=== PATIENT | female | born 2000 | race African-American/Black ===

== ENCOUNTER 2021-01-18 08:05 | Emergency (ER) | payer SELFPAY ==
[2021-01-18 08:17] VITALS: BP 133/75; PULSE 96; RESP 16; TEMP 36.8; O2SAT 100
--- NOTE | 2021-01-18 08:30 | ECG_ITS ---
Measurements Intervals [place] Rate: 81 P: 65 HI: 138 QRS: 67 QRSD: 73 T: 35 QT: 382 QTc: 444 Interpretive Statements SINUS RHYTHM WITH SINUS ARRHYTHMIA MINIMAL Q WAVES- INF/LAT LEADS NONSPECIFIC T-WAVE ABNORMALITY- ANTERIOR LEADS BASELINE ARTIFACT- I, II, III, AVR, AVF BORDERLINE ECG Electronically Signed On 01-18-2021 8:57:36 LOCKER ROOM CLERK by Drew Hammer D.O.
--- NOTE | 2021-01-18 08:34 | ED.CHESTPAIN ---
HPI - Chest Pain General Stated Complaint: cp/abd pain/Weakness History of Present Illness HPI narrative: This is a 20-year-old female comes in complaining of chest pain that started on Friday according to patient the pain is straight down the middle stops at the mid abdomen. Patient is having pain anytime she sleeps on her left side of her torso and her she is having trouble breathing and intense and some nausea. At times patient is stating that she is having heart palpitations just doing basic tasks or events that sitting causes her to become weak and feeling faint. Patient states that she took ibuprofen today but her when she eats Related Data Home Medications Medication Instructions Recorded Confirmed norethindrone-e.estradiol-iron 1 tablet PO DAILY 01/18/21 01/18/21 [03/29 (28)] Allergies Allergy/AdvReac Type Severity Reaction Status Date / Time ibuprofen AdvReac Nausea Verified 01/18/21 08:27 Review of Systems Review of Systems: Chest pain, nausea vomiting, shortness of breath All systems reviewed & are unremarkable except as noted in HPI and below PMFSH Comments At time as signature, I have reviewed and agree with nursing past medical, social, surgical and family history. Please see nursing chart for further information. There is no relevant family history pertinent to the presenting complaint. Exam Narrative: GENERAL:Well-appearing, well-nourished, and in no acute distress. HEAD:Normocephalic, EYES: PERRLA and EOMI. ENT: Nares clear, no rhinorrhea or epistaxis. Mucous membranes moist. CHEST: Clear to auscultation. No respiratory distress. HEART: Regular rate and rhythm ABDOMEN: Soft, nontender, nondistended, normal active bowel sounds. EXTREMITIES: Normal range of motion. No edema. SKIN: Warm, dry, no rash. NEURO: No focal deficits. Alert and oriented x3. Course Course Emergency Course: EKG chest pain sinus arrhythmia Report given to Dr. Kaiser and Renetta NAJERAfraud prevention analyst to [facility] patient signed refusal paper Vital Signs Vital signs: Vital Signs Temperature 98.2 F 01/18/21 08:17 Pulse Rate 96 01/18/21 08:17 Respiratory Rate 16 01/18/21 08:17 Blood Pressure 133/75 01/18/21 08:17 Pulse Oximetry 100 01/18/21 08:17 Temperature 98.2 F 01/18/21 08:17 Pulse Rate 96 01/18/21 08:17 Respiratory Rate 16 01/18/21 08:17 Blood Pressure 133/75 01/18/21 08:17 Pulse Oximetry 100 01/18/21 08:17 MDM - Chest Pain Differential Diagnosis Differential diagnosis: Likely fracture of rib, stable angina, unstable angina pectoris, atypical chest pain, st elevation myocardial infarction, costochondritis, chest pain and biliary colic Discharge Plan Discharge Clinical Impression: Chest pain Qualifiers: Chest pain type: unspecified Qualified Code(s): R07.9 - Chest pain, unspecified Patient Disposition: Acute Care Hospital Condition: Stable Instructions: Antibiotic Form Prescriptions: No Action norethindrone-e.estradiol-iron [03/29 (28)] 1 mg-20 mcg (21)/75 mg (7) Tablet 1 tablet PO DAILY RF: 0 Follow-up/Referrals: UNKNOWN,DOCTOR [Primary Care Provider] - Time of Disposition: 08:45
== END 2021-01-18 08:40 | disposition short-term general hospital (02) ==
PROVIDERS: Emergency Provider Nurse Practitioner Family
DX: R07.9 Chest pain, unspecified (principal)
CPT/HCPCS: 93005; 99213; G0463

== ENCOUNTER 2021-01-18 09:00 | Emergency (ER) | payer SELFPAY ==
--- NOTE | ~2021-01-18 | XR_ITS ---
EXAMINATION: XR chest 2V DATE: 01/18/2021 09:52 INDICATION: Chest pain TECHNIQUE: Frontal and lateral views of the chest are obtained COMPARISON: None available FINDINGS: The lungs are free of acute opacities. There is no pleural effusion or pneumothorax. The ca rdiomediastinal silhouette is normal. The visualized bones and soft tissues are unremarkable. IMPRESSION: 1. No acute cardiopulmonary abnormality. Reviewed, dictated and finalized at location B. ICE OBSERVER
--- NOTE | 2021-01-18 09:17 | ECG_ITS ---
Measurements Intervals [place] Rate: 94 P: 71 [place]: 129 QRS: 69 QRSD: 89 T: 4 QT: 353 QTc: 443 Interpretive Statements SINUS RHYTHM BORDERLINE ST-T WAVE ABNORMALITY- ANT/INF LEADS BASELINE ARTIFACT- II, III, AVL, AVF, V3-V6 BORDERLINE ECG Electronically Signed On 01-18-2021 9:27:56 SHAVING MACHINE OPERATOR by Drew Hammer D.O.
[2021-01-18 09:18] VITALS: BP 135/84; PULSE 106; RESP 16; TEMP 36.2; O2SAT 100
--- NOTE | 2021-01-18 09:52 | PC.NURSE ---
This RN unable to gain IV access. Had another RN attempt and was unsuccessful as well.
--- NOTE | 2021-01-18 10:06 | ED.CHESTPAIN ---
HPI - Chest Pain General Chief Complaint: Chest Pain Stated Complaint: CP, stomach pain Time Seen by Provider: 01/18/21 09:18 Source: patient and family Mode of arrival: ambulatory Limitations: no limitations History of Present Illness HPI narrative: Patient is 20 years old -[place] female presents with retrosternal chest pain and epigastric pain that started 4 days ago worse with movement, better sitting up and remaining still. Associated with nausea. Patient denies any fever, chills, vomiting, diarrhea, constipation, vaginal bleeding or discharge, urinary symptoms, radiation of pain. Patient denies smoking or drinking, using marijuana occasionally. No history of abdominal surgery. A a lot of stress lately. Related Data Home Medications Medication Instructions Recorded Confirmed norethindrone-e.estradiol-iron 1 tablet PO DAILY 01/18/21 01/18/21 [03/29 (28)] Allergies Allergy/AdvReac Type Severity Reaction Status Date / Time broccoli Allergy Unknown Verified 01/18/21 09:27 ibuprofen AdvReac Nausea Verified 01/18/21 09:27 Review of Systems Review of Systems: CONSTITUTIONAL: Denies fever, chills, or sweats. EYES: Denies visual changes, redness, or discharge. ENT: Denies rhinorrhea, congestion, sore throat, or otalgia. CARDIOVASCULAR: Denies chest pain, palpitations, or edema. RESPIRATORY: Denies cough or dyspnea. GASTROINTESTINAL: Denies abdominal pain, nausea, vomiting, or diarrhea. GENITOURINARY: Denies dysuria or hematuria. SKIN: Denies rash or itching. MUSCULOSKELETAL: Denies back pain, joint pain, or myalgia. NEUROLOGIC: Denies headache, numbness, or weakness. PSYCHIATRIC: Denies anxiety or depression. Exam Narrative: General appearance: Well-developed, well-nourished Skin: Normal color Head: Normocephalic, nontraumatic Eyes: Clear conjunctiva ENT: Oropharynx normal, ears normal, nose normal Neck: Supple, nontender Chest and respiratory: Airway patent, no respiratory distress, no accessory muscle use Heart: Regular rate/rhythm Abdomen: Soft, tender epigastric area, quiet bowel sounds, no guarding or rebound. Vascular: Normal peripheral pulses, normal capillary refill. Musculoskeletal: Normal range of motion, nontender back Neurologic: Alert and oriented ?3, TRANSPORTATION REFRIGERATION TECHNICIAN is normal as tested, no gross motor deficit Course Course Emergency Course: Stable Vital Signs Vital signs: Vital Signs Temperature 36.2 C L 01/18/21 09:18 Pulse Rate 106 H 01/18/21 09:18 Respiratory Rate 16 01/18/21 09:18 Blood Pressure 135/84 01/18/21 09:18 Pulse Oximetry 100 01/18/21 09:18 Temperature 36.2 C L 01/18/21 09:18 Pulse Rate 78 01/18/21 11:23 Respiratory Rate 18 01/18/21 11:23 Blood Pressure 135/84 01/18/21 11:23 Pulse Oximetry 99 01/18/21 11:23 MDM - Chest Pain MDM Narrative Medical decision making narrative: Patient presents with retrosternal and epigastric pain. Differential diagnosis as below. Labs, chest x-ray, EKG ordered. Work-up showed no significant findings to explain patient condition. Anxiety-like symptoms is my concern. Differential Diagnosis Differential diagnosis: Likely atypical chest pain, costochondritis, chest pain, biliary colic and other (Pancreatitis, gastritis, stress-like symptoms) Lab Data Result diagrams: 01/18/21 10:22 01/18/21 10:22 Labs: Lab Results 01/18/21 01/18/21 01/18/21 Range/Units 10:22 10:22 10:22 WBC 5.4 (4.5-10.0) K/mm3 RBC 4.44 (4.2-5.4) M/mm3 Hgb 12.1 (12.0-15.0) g/dL Hct 38.0 (37.0-47.0) % MCV 85.6 (80-100) fl MCH 27.3 (26-34) pg MCHC 31.8 L (32-36) g/dl RDW 12.4 (11.5-14.5)
[2021-01-18 10:29] LABS: Basophils Percent Auto 0.4 % (0.2-1.2); Eosinophils Absolute Auto 0.1 K/mm3 (0-0.3); Eosinophils Percent Auto 0.9 % (0-4.4); Hemoglobin 12.1 g/dL (12.0-15.0); Immature Granulocyte Absolute 0.02 K/mm3 (0.00-0.031); Immature Granulocyte Percent A 0.4 % (0-0.5); Lymphocytes Absolute Auto 1.65 K/mm3 (0.9-3.2); Lymphocytes Percent Auto 30.7 % (18.3-44.2); Mean Corpuscular HGB Conc 31.8 g/dl (32-36); Mean Corpuscular Hemoglobin 27.3 pg (26-34); Mean Corpuscular Volume 85.6 fl (80-100); Mean Platelet Volume 10.4 fl (7.4-10.4); Monocytes Absolute Auto 0.3 K/mm3 (0.1-0.6); Neutrophils Absolute Auto 3.4 K/mm3 (1.3-6.7); Neutrophils Percent Auto 62.6 % (45.5-73.1); Platelet Count Result 247 k/mm3 (150-375); Red Blood Count 4.44 M/mm3 (4.2-5.4); Red Cell Distribution Width 12.4 % (11.5-14.5); White Blood Count 5.4 K/mm3 (4.5-10.0)
[2021-01-18 10:39] LABS: Prothrombin Time 13.3 Seconds (11.1-14.7)
[2021-01-18 10:40] LABS: Partial Thromboplastin Time 32.4 SECONDS (22.3-36.8)
[2021-01-18 10:47] LABS: CRP < 0.5 mg/dL (<1.0)
[2021-01-18 11:06] LABS: Anion Gap 8 mmol/L (8-16); Blood Urea Nitrogen 10 mg/dL (7-17); Calcium 9.6 mg/dL (8.4-10.2); Carbon Dioxide 23 mmol/L (22-30); Chloride 108 mmol/L (98-107); D Dimer 0.27 ug/mL (<0.48); Estimated CRCL calculation 119 ml/min; Estimated Glomerular Filt Rate > 60; Glucose 78 mg/dL (65-110); Potassium 3.7 mmol/L (3.4-5.0); Sodium 139 mmol/L (137-145); Troponin I < 0.012 ng/mL (0.000-0.034)
[2021-01-18 11:23] VITALS: BP 135/84; PULSE 78; RESP 18; O2SAT 99
== END 2021-01-18 11:36 | disposition home or self-care (01) ==
PROVIDERS: Emergency Provider Emergency Medicine
DX: R07.89 Other chest pain (principal); R10.13 Epigastric pain
CPT/HCPCS: 36415; 71046; 80048; 84484; 85025; 85380; 85610; 85730; 86140; 93005; 99284

== ENCOUNTER 2021-12-19 08:18 | Emergency (ER) | payer SELFPAY ==
[2021-12-19 08:28] VITALS: BP 120/72; PULSE 73; RESP 16; TEMP 36.6; O2SAT 100
--- NOTE | 2021-12-19 08:28 | ED.EAR ---
HPI - Ear Problem General Chief complaint: Ear Stated complaint: Both Ears Irritation Time Seen by Provider: 12/19/21 08:30 Source: patient Mode of arrival: ambulatory Limitations: no limitations History of Present Illness HPI Narrative: 21-year-old female presented for complaint of bilateral ear irritation for about a week. Endorses waking with decreased hearing this morning. She has used tea tree oil and other unknown drops without relief. She states the right ear has pain and foul smelling light colored drainage. She endorses the left ear has decreased hearing. Endorses occasional headaches and dizziness. Denies tinnitus, nausea, vomiting, fevers or chills. MD Complaint: ear pain Related Data Allergies Allergy/AdvReac Type Severity Reaction Status Date / Time broccoli Allergy Unknown Verified 12/19/21 08:21 ibuprofen AdvReac Nausea Verified 12/19/21 08:21 Review of Systems Review of Systems: CONSTITUTIONAL: Denies malaise, chills, or fever. EYES: Denies visual changes, redness, or discharge. ENT: Denies rhinorrhea, congestion, sinus pain, and sore throat. Reports ear pain CARDIOVASCULAR: Denies chest pain, palpitations, or edema. RESPIRATORY: Denies cough or dyspnea. GASTROINTESTINAL: Denies abdominal pain, nausea, vomiting, diarrhea SKIN: Denies rash or itching. MUSCULOSKELETAL: Denies myalgia. NEUROLOGIC: Denies headache. All systems reviewed & are unremarkable except as noted in HPI and below PMFSH Comments At time of signature, agree with nursing past medical, surgical, social and family history. There is no relevant family history pertinent to the presenting complaint Exam Narrative: GENERAL: Well-appearing EYES: PERRLA, conjunctivae clear ENT: Nares clear. Mucous membranes moist. TMs unable to visualize bilaterally due to cerumen impaction ; no tragal tenderness. Oropharynx not erythematous without lesions. no drooling, no hoarseness, no trismus, uvula midline. CHEST: Clear to auscultation, breath sounds equal. HEART: Regular rate and rhythm. No murmur heard. SKIN: Warm, dry, no rash. NEURO: Alert and oriented x3. PSYCH: Normal mood and affect Course Course Emergency Course: Patient is aware of diagnosis, understands and agrees to treatment plan. Anticipatory guidance given. Patient agrees to follow-up as directed and is aware of reasons to seek care at the emergency department. Portions of this record may have been created with voice recognition software Level of Care: Express Care Visit Vital Signs Vital signs: Vital Signs Temperature 97.9 F 12/19/21 08:28 Pulse Rate 73 12/19/21 08:28 Respiratory Rate 16 12/19/21 08:28 Blood Pressure 120/72 12/19/21 08:28 Pulse Oximetry 100 12/19/21 08:28 Oxygen Delivery Room Air 12/19/21 08:28 Temperature 97.9 F 12/19/21 08:28 Pulse Rate 73 12/19/21 08:28 Respiratory Rate 16 12/19/21 08:28 Blood Pressure 120/72 12/19/21 08:28 Pulse Oximetry 100 12/19/21 08:28 Oxygen Delivery Room Air 12/19/21 08:28 Reviewed Procedures Ear Wax Removal Both Ears: Cerumenolytic Used: other (50/50 hydrogen peroxide and warm water) Results: Re-examined: some cerumen remains TM Examination: TM(s) intact, normal appearance (Left) and TM(s) erythematous (Right) Ear Canal Exam: atraumatic Patient Tolerated Procedure: well and no complications Technique: ear canal irrigated and ear canal curetted Additional Comments: Right ear canal with mild drainage and redness, tenderness; c/w OM. Left TM appears normal after cerumen removed, Small amount cerumen remains near TM but patient reports significant improvement in hearing. Medical Decision Making MDM Narrative Medical decision making narrative: Will treat for AOM and EO. Advised supportive measures and signs/symptoms to go to the ER. Patient is appropriate for outpatient treatment and follow-up. Differential Diagnosis Differential Diagnosis:
[2021-12-19] MEDS: HYDROGEN PEROXIDE 3% SOLN(*SP) 473 ML BOTTLE 100 ML IRRIGATION (08:30)
== END 2021-12-19 09:03 | disposition home or self-care (01) ==
PROVIDERS: Emergency Provider Nurse Practitioner Family
DX: H66.001 Acute suppurative otitis media without spontaneous rupture of ear drum, right ear (principal); H61.23 Impacted cerumen, bilateral
CPT/HCPCS: 69210; 99213; A9270; G0463

== ENCOUNTER 2022-12-10 16:38 | Emergency (ER) | payer BC, SELFPAY ==
--- NOTE | 2022-12-10 16:51 | ED.SKABFB ---
HPI - Skin/Abscess/Foreign Bdy General Chief complaint: Skin/Abscess/Foreign Body Stated complaint: irritation on skin Time Seen by Provider: 12/10/22 17:05 Source: patient and RN notes reviewed Mode of arrival: ambulatory Limitations: no limitations History of Present Illness HPI narrative: 22-year-old female presents with concern for a rash on her stomach and under her bra line. Reports some spots have been there for weeks, some months. She reports there itchy and stinging. 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 She denies any other areas of rash. complaint: rash Related Data Allergies Allergy/AdvReac Type Severity Reaction Status Date / Time broccoli Allergy Unknown Verified 12/10/22 17:02 ibuprofen AdvReac Nausea Verified 12/10/22 17:02 Review of Systems Review of Systems: CONSTITUTIONAL: Denies malaise, chills, sweats, or fever. EYES: Denies redness, or discharge. ENT: Denies rhinorrhea, congestion, swollen lips, swollen tongue CARDIOVASCULAR: Denies chest pain, palpitations, or edema. RESPIRATORY: Denies cough or dyspnea. GASTROINTESTINAL: Denies abdominal pain, nausea, vomiting SKIN: Reports scaly rash on her abdomen and under her bra MUSCULOSKELETAL: Denies joint pain or myalgia. NEUROLOGIC: Denies headache. All systems reviewed & are unremarkable except as noted in HPI and below PMFSH Comments At time of signature, agree with nursing past medical, surgical, social and family history. There is no relevant family history pertinent to the presenting complaint Exam Narrative: GENERAL: Well-appearing, well-nourished, and in no acute distress. HEAD: Normocephalic, atraumatic. EYES: PERRLA, conjunctivae clear, and EOMI. ENT: Mucous membranes moist. Oropharynx without edema, erythema or lesions. NECK: Supple. No lymphadenopathy CHEST: Clear to auscultation. No respiratory distress. HEART: Regular rate and rhythm. SKIN: Warm, dry. Annular patches of erythematous plaque noted under the bra line consistent with tinea NEURO: Alert and oriented x3. PSYCH: Normal mood and affect Course Course Emergency Course: Patient is aware of diagnosis, understands and agrees to treatment plan. Anticipatory guidance given. Patient agrees to follow-up as directed and is aware of reasons to seek care at the emergency department. Portions of this record may have been created with voice recognition software Level of Care: Express Care Visit Vital Signs Vital signs: Reviewed. MDM - Skin/Abscess/Foreign Bdy MDM Narrative Medical decision making narrative: Does not appear at this time to be erythema multiforme, bullous, SJS, TEN; no evidence at this time to suggest RMSF, endocarditis or Lyme disease; patient looks well, nontoxic and is tolerating oral intake; no neurologic signs or symptoms; no headache, photophobia or neck pain; afebrile; appropriate for initial outpatient treatment; discussed the importance of follow-up, patient agrees; question, viral exanthema, contact dermatitis, allergic dermatitis, eczema, urticaria, tinea. No soft palate or uvula edema, no tongue, lip edema or other mucosal involvement, no respiratory compromise, no stridor, no wheezing, no wheezing, no history of syncope, no hypotension, no nausea, vomiting, or diarrhea. Instructed patient to go to nearest ER immediately for any worsening symptoms including but not limited to: fever, spreading rash, pain, sore throat, headache, dizziness, chest pain, trouble breathing, or any symptoms concerning to the patient. Critical Care Time Critical Care Time Critical Care Time: No Discharge Plan Discharge Clinical Impression: Tinea corporis Patient Disposition: Home, Self-Care Condition: Stable Instructions: Tinea Corporis (ED) Additional Instructions: Use cream as prescribed twice daily. [place] Lysol in all of your shoes to prevent exposure. Always wear flip-flops in public showers. Dry thorou
[2022-12-10 17:02] VITALS: BP 121/72; PULSE 112; RESP 16; TEMP 36.9; O2SAT 99
== END 2022-12-10 17:15 | disposition home or self-care (01) ==
PROVIDERS: Emergency Provider Nurse Practitioner
DX: B35.4 Tinea corporis (principal)
CPT/HCPCS: 99213; G0463

== ENCOUNTER 2023-01-09 17:02 | Emergency (ER) | payer BC, SELFPAY ==
--- NOTE | 2023-01-09 17:05 | ED.SKABFB ---
HPI - Skin/Abscess/Foreign Bdy General Chief complaint: Skin/Abscess/Foreign Body Stated complaint: Rash Time Seen by Provider: 01/09/23 17:27 Source: patient, RN notes reviewed and old records reviewed Mode of arrival: ambulatory Limitations: no limitations History of Present Illness HPI narrative: 22-year-old female presents to the [facility] with a rash to the right posterior shoulder. Also concern for burning, itchy skin to the spine area, no rashes noted No erythema. Flaky dry skin noted to the mid back No swelling noted. No fluctuance. Related Data Home Medications Medication Instructions Recorded Confirmed No Home Medications 01/09/23 01/09/23 Allergies Allergy/AdvReac Type Severity Reaction Status Date / Time broccoli Allergy Unknown Verified 01/09/23 17:13 ibuprofen AdvReac Nausea Verified 01/09/23 17:13 Review of Systems Review of Systems: All systems reviewed & are unremarkable except as noted in HPI and below Constitutional: Constitutional: Reports no additional constitutional complaints Eyes: Eyes: Reports no additional eye complaints ENT: Reports system reviewed and no additional complaints, except as documented Cardiovascular: Cardiovascular: Reports no additional cardiovascular complaints, Denies chest pain and Denies dyspnea Respiratory: Respiratory: Reports no additional respiratory complaints, Denies chest congestion, Denies cough and Denies dyspnea Gastrointestinal: Gastrointestinal: Reports no additional gastrointestinal complaints, Denies abdominal pain, Denies nausea and Denies vomiting Musculoskeletal: Musculoskeletal: Reports no additional musculoskeletal complaints Integumentary/Breasts: Skin/Breast: Reports as per HPI Neurologic: Reports system reviewed and no additional complaints, except as documented Psychiatric: Psychiatric: Reports no additional psychiatric complaints Allergic/Immunologic: Allergic/Immunologic: Reports no additional allergic/immunologic complaints PMFSH Comments At the time of my signature, I reviewed and agree with the nursing past medical, surgical, social, and family history. There is no relevant family history pertinent to the patient complaint. Exam Const: General: cooperative, healthy appearing, comfortable, no acute distress, well developed, alert and well nourished Nutritional Appearance: well nourished Orientation/consciousness: patient oriented x3 Limitations: no limitations HENMT: Head: normal to inspection Ears: hearing grossly normal bilaterally and external ears normal Face/Nose/Sinus: Normal external nose present, Normal nares present, Normal nasal mucous membranes and turbinates present, normal facial exam and face symmetric Face and sinus: normal facial exam and face symmetric Eyes: General: appearance normal, both eyes and all related structures Alignment and Position: alignment normal Periorbital: periorbital findings normal Pupils: Equal, round and reactive pupils present EOM: EOMs intact bilaterally Neck: Neck: normal visual inspection, full ROM, no lymphadenopathy and no meningeal signs Chest: Chest palpation & inspection: normal inspection of the chest Resp: Effort & Inspection: normal respiratory effort and able to speak in complete sentences Auscultation: clear to auscultation bilaterally, no crackles, no rales, no rhonchi and no wheezes Cardio: Rate: regular rate Rhythm: regular rhythm Back/Spine/Pelvis: Cervical Spine: cervical ROM normal Skin: General skin exam: normal color and no rashes or lesions noted Lesions: no lesions Wounds: no wounds Other: Center back, dry, flaky skin with no cellulitic changes. Full body images: 1. 2x2 cm area small bumps, No erythema, no swelling noted, no increased warmth. No signs of cellulitic changes. Possible contact dermatitis versus acne versus bug bite Neuro: General: patient oriented x3, gait normal, tone normal, moves all extremities and no meningeal signs
[2023-01-09 17:12] VITALS: BP 139/95; PULSE 99; RESP 18; TEMP 36.6; O2SAT 99
[2023-01-09 17:13] VITALS: BP 139/95; PULSE 99; RESP 18; TEMP 36.6; O2SAT 99
== END 2023-01-09 17:42 | disposition home or self-care (01) ==
PROVIDERS: Emergency Provider Nurse Practitioner
DX: L85.3 Xerosis cutis (principal)
CPT/HCPCS: 99211; G0463

== ENCOUNTER 2024-07-14 13:07 | Emergency (ER) | payer OTHER, SELFPAY ==
[2024-07-14 13:23] VITALS: BP 110/63; PULSE 82; RESP 16; TEMP 36.2; O2SAT 100
--- NOTE | 2024-07-14 13:42 | ED_ITS ---
HPI - Ear Problem General Chief complaint: Ear Stated complaint: ringing/decrease hearing both ears Time Seen by Provider: 07/14/24 13:11 Source: patient Mode of arrival: ambulatory Limitations: no limitations History of Present Illness HPI Narrative: Shameka is a 24-year-old female patient presenting to the clinic today with complaints no ear discomfort and decreased hearing in both ears. She reports this is been going on for approximately a week and a half. Right ear worse than left ear. No URI symptoms. No sore throat, no fever Related Data Home Medications ?Medication ?Instructions ?Recorded ?Confirmed ?Last Taken ?Type No Home Medications 01/09/23 07/14/24 Unknown History Allergies Allergy/AdvReac Type Severity Reaction Status Date / Time broccoli Allergy Unknown Verified 07/14/24 13:33 ibuprofen AdvReac Nausea Verified 07/14/24 13:33 Review of Systems Review of Systems: Pertinent positives per HPI. Patient denies any fever, chills, rash, headache, visual changes, dizziness, cough, runny nose, sore throat, shortness of breath, chest pain, palpitations, nausea, vomiting, diarrhea, constipation, abdominal pain, or any urinary issues. PMFSH Comments At the time of my signature, I reviewed and agree with the nursing past medical, surgical, social, and family history. There is no relevant family history pertinent to the patient complaint. Exam Narrative: General: Well-developed, well nourished, in no apparent distress Head: Normocephalic, atraumatic Eyes: Pupils equally round and reactive to light bilaterally, EOM intact, sclera and conjunctive clear, no discharge, lids normal Ears: Bilateral cerumen impaction, ear irrigation was performed, TMs intact and clear, ear canals clear, no drainage, grossly hearing normal. Nose: Nares patent, no discharge, no inflammation, no sinus tenderness. Mouth: Oropharynx without lesions or masses, good dentition, MMM. Neck: Supple, trachea midline, no enlargement of anterior or posterior cervical nodes, no thyroid masses or goiter palpable. Cardio: Regular rate and rhythm, s1 and s2 normal, no murmur appreciated. Resp: Clear to auscultation bilaterally anteriorly and posteriorly, no rhonchi, rales, wheezing or rubs Course Course Emergency Course: Portions of this record may have been created with voice recognition software. Level of Care: Express Care Visit Vital Signs Vital signs: Vital Signs Temperature 36.2 C L 07/14/24 13:23 Pulse Rate 82 07/14/24 13:23 Respiratory Rate 16 07/14/24 13:23 Blood Pressure 110/63 07/14/24 13:23 Pulse Oximetry 100 07/14/24 13:23 Temperature 36.2 C L 07/14/24 13:23 Pulse Rate 82 07/14/24 13:23 Respiratory Rate 16 07/14/24 13:23 Blood Pressure 110/63 07/14/24 13:23 Pulse Oximetry 100 07/14/24 13:23 Vital signs reviewed Procedures Ear Wax Removal Both Ears: Ear Wax Removal Date: 07/14/24 Results: Re-examined: cerumen removed completely TM Examination: TM(s) intact, normal appearance Ear Canal Exam: atraumatic Patient Tolerated Procedure: well and no complications Complications: no problems Technique: ear canal irrigated Additional Comments: Verbal consent obtained for ear irrigation. Risk and benefits explained and patient voiced understanding. Ear irrigation performed using an elephant ear and spray water bottle. Mixture of 1/2 peroxide 1/2 water used to irrigate ear canal. Cerumen impaction cleared and TM visualized without redness. Grossly hearing normal. Patient tolerated procedure well Medical Decision Making MDM Narrative Medical decision making narrative: At the time of visit patient is resting comfortably on the exam table. Patient appears to be nontoxic. Procedures: Ear irrigation procedure was performed in the clinic and successful. Patient tolerated well Plan: Patient had bilateral cerumen impaction and was irrigated with warm water and peroxide. Patient tolerated procedure well. Symptoms have improved. Supportive measures were discussed with the patient and they voiced understanding discharge instructions and agrees to treatment plan. Return precautions reviewed Differential Diagnosis Differential Diagnosis: Otitis media, otitis externa, eustachian tube dysfunction, cerumen impaction, upper respiratory infection, serous otitis Vital Signs Vital Signs: Vital Signs Temperature 36.2 C L 07/14/24 13:23 Pulse Rate 82 07/14/24 13:23 Respiratory Rate 16 07/14/24 13:23 Blood Pressure 110/63 07/14/24 13:23 Pulse Oximetry 100 07/14/24 13:23 Temperature 36.2 C L 07/14/24 13:23 Pulse Rate 82 07/14/24 13:23 Respiratory Rate 16 07/14/24 13:23 Blood Pressure 110/63 07/14/24 13:23 Pulse Oximetry 100 07/14/24 13:23 Discharge Plan Discharge Clinical Impression: Bilateral impacted cerumen Patient Disposition: Home Condition: Stable Instructions: Antibiotic Form Additional Instructions: Ear irrigation was performed in the clinic today successfully. May instill Debrox ear drops- 5drops in your ears for 3 consecutive nights monthly to help emulsify wax. Irrigate ears using half peroxide/half warm water solution-may use bulb syringe Follow-up as needed Patient Language: Romanian Prescriptions: No Action No Home Medications Follow-up/Referrals: PHYSICIAN,OUTPATIENT SURGERY RN [Primary Care Provider] - Time of Disposition: 13:37 Quality NIHSS Nursing Documentation ED NIHSS nursing documentation: reviewed/agree
[2024-07-14] MEDS: HYDROGEN PEROXIDE 3% SOLN(*SP) 473 ML BOTTLE 30 ML IRRIGATION (13:44)
== END 2024-07-14 13:45 | disposition home or self-care (01) ==
PROVIDERS: Emergency Provider Nurse Practitioner Family
DX: H61.23 Impacted cerumen, bilateral (principal)
CPT/HCPCS: 69209; 99212; A9270; G0463

== ENCOUNTER 2025-01-07 13:36 | Outpatient (CLI) | payer OTHER, SELFPAY ==
--- NOTE | ~2025-01-07 | CT_ITS ---
CT cervical spine wo con HISTORY: Neck Pain COMPARISON: None TECHNIQUE: Axial images of the cervical spine were obtained. Multiplanar reconstruction in the coronal, sagittal and axial reformats to evaluate for cervical fracture. FINDINGS: The images demonstrate no acute fracture or paravertebral soft tissue swelling. There is no high-grade central or foraminal stenosis. No significant degenerative changes are noted. The visualized aspect of the upper lungs are clear. IMPRESSION: No acute fracture or subluxation. All CT scans at this facility are performed using low dose modulation techniques as appropriate to perform exam including the following: automated exposure control; adjustment of the mA and/or kV according to patient size (this includes techniques or standardized protocols for targeted exams where does is matched to indication/reason for exam; i.e. extremities or head); use of iterative reconstruction technique). Reviewed, dictated and finalized at location S. IMPRESSION: No acute fracture or subluxation. All CT scans at this facility are performed using low dose modulation techniqu es as appropriate to perform exam including the following: automated exposure c ontrol; adjustment of the mA and/or kV according to patient size (this includes techniques or standardized protocols for targeted exams where does is matched to indication/reason for exam; i.e. extremities or head); use of iterative yariel nstruction technique).
== END 2025-01-07 13:37 | disposition home or self-care (01) ==
LOC: MICIMG 13:38
DX: M54.2 Cervicalgia (principal)
CPT/HCPCS: 72125